=== PATIENT | female | born 2000 | race Caucasian/White ===

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

== ENCOUNTER 2020-02-08 14:08 | Emergency (ER) | payer BC ==
[2020-02-08] MEDS ORDERED: Sodium Chloride 0.9% 10 ML SDV IV PRN (14:17)
[2020-02-08] MEDS ORDERED: Sodium Chloride 0.9% 2.5 ML Syringe FLUSH PRN (14:17)
[2020-02-08] MEDS ORDERED: Sodium Chloride 0.9% 10 ML Syringe FLUSH PRN (14:17)
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
--- NOTE | 2020-02-08 14:45 | CT ---
Head CT Technique: Multiple axial sections through the brain were obtained. Intravenous contrast was not utilized. Comparison: Most previous intracranial imaging is an MRI brain exam of 10/15/19. Findings: Ventricles along with basal cisterns and sulci over the convexities are within normal limits for the patient's age. No abnormal parenchymal densities are seen. No evidence of intracranial hemorrhage. No midline shift or mass-effect is seen. Bone window settings were reviewed which show no acute calvarial finding. Visualized paranasal sinuses and mastoid sinuses show nothing acute. No acute calvarial finding is seen. Impression: 1. Nothing acute is appreciated on noncontrast head CT exam. Diagnostic code #1 This report was dictated in MDT
[2020-02-08] MEDS ORDERED: Iopamidol 755 MG/ML 500 ML Multipack Bottle IVPUSH STA (14:57)
--- NOTE | 2020-02-08 15:00 | CT ---
CT angiogram of brain Technique: Multiple axial sections were obtained through the brain. Intravenous contrast was utilized. Study performed as a CT angiogram protocol. Multiple MIP images were obtained. Comparison: Prior CT angiogram of brain dated 10/14/19. Findings: Dominant right vertebral artery is seen which is a stable finding and normal variant. Basilar artery is patent. Posterior cerebral arteries are patent. Distal internal carotid arteries are patent into the anterior and posterior cerebral arteries. No focal occlusion or stenosis is seen. No discrete aneurysm is appreciated. Impression: 1. No abnormality is identified on CT angiogram of the brain. No change from previous study is seen. Diagnostic code #1 This report was dictated in MDT
[2020-02-08 15:03] LABS: BLOOD UREA NITROGEN,BUN 16 mg/dL (7.0-18.0); CARBON DIOXIDE,CO2 26.7 mmol/L (21.0-32.0); CHLORIDE,CL 103 mmol/L (98-107); GLUCOSE RANDOM 104 mg/dL (74-106); POTASSIUM,K 3.5 mmol/L (3.5-5.1); SODIUM,NA 138 mmol/L (136-145)
--- NOTE | 2020-02-08 15:03 | CT ---
CT angiogram of neck Technique: Multiple axial sections through the neck were obtained. Intravenous contrast was utilized. Study was performed as a CT angiogram protocol. Multiple MIP images were obtained. Comparison: Previous CT neck study of 10/14/19. Findings: Common carotid arteries are widely patent on both sides. Carotid bulb appears unremarkable. Internal carotid artery and external carotid arteries appear within normal limits. Dominant right vertebral artery is seen which is patent. Small left vertebral artery is seen which is patent. 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 No focal stenosis, occlusion or dissection is seen. Impression: 1. No abnormality is seen on CT angiogram of the neck. No change from previous study is seen. Diagnostic code #1 This report was dictated in MDT
[2020-02-08] MEDS ORDERED: Aspirin 325 MG Tab PO ONE (15:35)
[2020-02-08 16:20] VITALS: BP 115/78; PULSE 80
== END 2020-02-08 16:00 | disposition home or self-care (01) ==
LOC: MW.ED 14:08
DX: G45.9 Transient cerebral ischemic attack, unspecified (principal); Z88.2 Allergy status to sulfonamides; Z88.1 Allergy status to other antibiotic agents
CPT/HCPCS: 36415; 70450; 70496; 70498; 80048; 84443; 84484; 84703; 85025; 85610; 85730; 93005; 99284; A9270; Q9967

== ENCOUNTER 2020-09-12 16:13 | Emergency (ER) | payer BC ==
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
[2020-09-12] MEDS ORDERED: Sodium Chloride 0.9% 1,000 ML IV ONE (16:56)
[2020-09-12 17:36] LABS: BLOOD UREA NITROGEN,BUN 12 mg/dL (7.0-18.0); CARBON DIOXIDE,CO2 27.6 mmol/L (21.0-32.0); CHLORIDE,CL 108 mmol/L (98-107); GLUCOSE RANDOM 93 mg/dL (74-106); LIPASE 113 U/L (73-393); POTASSIUM,K 3.6 mmol/L (3.5-5.1); SODIUM,NA 145 mmol/L (136-145)
--- NOTE | 2020-09-12 18:01 | CR ---
INDICATION: Recent pacemaker placement TECHNIQUE: Chest radiograph 1 view COMPARISON: 10/14/2019 FINDINGS: Mediastinum: The mediastinum is normal in appearance. The heart silhouette is normal in size and morphology. There is a left cardiac pacer present with leads in the right atrium and right ventricle. Lung: Small lung volumes are present with discoid atelectasis seen in the right lung base. No sign of pleural effusion seen. No pneumothorax is identified. Bone and Soft tissue: Unremarkable for age. IMPRESSION: 1. Small lung volumes are present with discoid atelectasis seen in the right lung base. Dictated by Jack Jordan MD @ 09/12/2020 6:00:22 PM Dictated by: Jack Jordan MD @ 09/12/2020 18:00:29 (Electronically Signed)
[2020-09-12 18:35] VITALS: BP 113/71; PULSE 91
== END 2020-09-12 18:35 | disposition home or self-care (01) ==
LOC: MW.ED 16:13
DX: R00.2 Palpitations (principal); R00.0 Tachycardia, unspecified; R42 Dizziness and giddiness; R07.9 Chest pain, unspecified; Z88.2 Allergy status to sulfonamides
CPT/HCPCS: 36415; 71045; 80053; 82550; 83690; 83735; 84100; 84484; 85025; 93005; 99285; J7030

== ENCOUNTER 2020-10-06 14:18 | Emergency (ER) | payer BC ==
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
[2020-10-06 15:10] LABS: BLOOD UREA NITROGEN,BUN 14 mg/dL (7.0-18.0); CARBON DIOXIDE,CO2 26.5 mmol/L (21.0-32.0); CHLORIDE,CL 103 mmol/L (98-107); GLUCOSE RANDOM 70 mg/dL (74-106); LIPASE 96 U/L (73-393); POTASSIUM,K 3.8 mmol/L (3.5-5.1); SODIUM,NA 142 mmol/L (136-145)
--- NOTE | 2020-10-06 16:06 | CR ---
INDICATION: Palpitations. TECHNIQUE: Chest 2 views. COMPARISON: Chest radiograph 09/12/2020. FINDINGS: No focal consolidation, pleural effusion, or pneumothorax. Resolution of previously seen right lower lung atelectasis. Normal heart size and pulmonary vascularity. Left chest pacemaker with leads in stable position. The bones are unremarkable. IMPRESSION: No acute cardiopulmonary findings. Dictated by Latosha Cordon MD @ Oct 06 2020 4:01PM Signed by Dr. Latosha Cordon @ Oct 06 2020 4:03PM
[2020-10-06 17:54] VITALS: BP 135/82; PULSE 58
== END 2020-10-06 17:13 | disposition home or self-care (01) ==
LOC: MW.ED 14:18
DX: R00.2 Palpitations (principal); R07.9 Chest pain, unspecified; Z95.0 Presence of cardiac pacemaker; Z88.2 Allergy status to sulfonamides; Z88.1 Allergy status to other antibiotic agents
CPT/HCPCS: 36415; 71046; 71046-26; 80053; 82962; 83690; 83735; 84484; 84703; 85025; 86140; 93005; 93010; 99284; 99285-25

== ENCOUNTER 2020-11-07 13:48 | Emergency (ER) | payer BC ==
--- NOTE | 2020-11-07 14:12 | PCM.EKG ---
#1 Interpretation EKG Date: 11/07/20 Time: 13:55 Rhythm: NSR Rate (Beats/Min): 85 Leopold: Normal P-Wave: Present QRS: Normal ST-T: Normal QT: Normal Comparison: No Change (10/06/20) EKG Interpretation Comments: SInus Rhythm
[2020-11-07 14:52] LABS: BLOOD UREA NITROGEN,BUN 11 mg/dL (7.0-18.0); CARBON DIOXIDE,CO2 26.8 mmol/L (21.0-32.0); CHLORIDE,CL 106 mmol/L (98-107); GLUCOSE RANDOM 99 mg/dL (74-106); POTASSIUM,K 3.7 mmol/L (3.5-5.1); SODIUM,NA 143 mmol/L (136-145)
[2020-11-07] MEDS ORDERED: Magnesium Sulfate (4.06 MEQ/ML) 5 GM/10 ML SDV IV STA (15:04)
[2020-11-07] MEDS ORDERED: Magnesium Sulfate/Water 2 GM/50 ML BAG IV ONE (15:15)
--- NOTE | 2020-11-07 15:27 | CR ---
Indication: Presyncope Technique: Chest 1 view Comparison: October 06, 2020 Findings/Impression: Normal cardiomediastinal silhouette. Electrical device projects over the left cardiac shadow. Interval removal left-sided pacemaker. Clear lungs and pleural spaces. Normal pulmonary vasculature. Osseous structures intact. Dictated by Lupe Contreras MD @ 11/07/2020 3:25:[address] Lupe Contreras @ Nov 07 2020 3:25PM
[2020-11-07] MEDS ORDERED: Lactated Ringers 1,000 ML IV SCH (15:30)
[2020-11-07] MEDS ORDERED: Ketorolac 15 MG/ML SDV IM ONE (15:31)
[2020-11-07] MEDS ORDERED: diphenhydrAMINE 50 MG/ML SDV IVPUSH ONE (15:38)
[2020-11-07] MEDS ORDERED: Prochlorperazine 10 MG/2 ML SDV IVPUSH ONE (15:38)
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
[2020-11-07 17:05] VITALS: BP 118/88; PULSE 96
== END 2020-11-07 17:40 | disposition home or self-care (01) ==
LOC: MW.ED 13:48
DX: G43.909 Migraine, unspecified, not intractable, without status migrainosus (principal); Z88.1 Allergy status to other antibiotic agents; Z20.822 Contact with and (suspected) exposure to COVID-19; Z95.0 Presence of cardiac pacemaker
CPT/HCPCS: 36415; 71045; 80053; 82947; 83735; 84443; 84484; 85025; 87635; 93005; 96365; 96366; 96372; 96375; 99284; J0780; J1200; J1885; J3475; J7120; 99283; U0002

== ENCOUNTER 2021-10-14 19:35 | Emergency (ER) | payer BC ==
[2021-10-14 20:19] VITALS: BP 132/87; PULSE 86
[2021-10-14 20:28] LABS: CORONAVIRUS COVID-19 NAA NEGATIVE (NEGATIVE); INFLUENZA A NAA NEGATIVE (NEGATIVE); INFLUENZA B NAA NEGATIVE (NEGATIVE)
== END 2021-10-14 20:18 | disposition home or self-care (01) ==
LOC: MW.ED 19:35
DX: H66.91 Otitis media, unspecified, right ear (principal); Z88.1 Allergy status to other antibiotic agents; Z95.0 Presence of cardiac pacemaker; Z20.822 Contact with and (suspected) exposure to COVID-19
CPT/HCPCS: 0240U; 99283

== ENCOUNTER 2022-01-21 22:35 | Emergency (ER) | payer BC | END 2022-01-22 00:43 | disposition left against medical advice (07) | LOC: MW.ED 22:35 | DX: Z53.21 Procedure and treatment not carried out due to patient leaving prior to being seen by health care provider (principal) ==

== ENCOUNTER 2022-02-06 00:21 | Emergency (ER) | payer BC ==
[2022-02-06] MEDS ORDERED: Ketorolac 30 MG/ML SDV IM STA (03:44)
[2022-02-06 03:57] VITALS: BP 110/78; PULSE 72
[2022-02-06 05:14] LABS: C. TRACHOMATIS BY PCR NOT DETECTED; N. GONORRHOEAE BY PCR NOT DETECTED
== END 2022-02-06 03:50 | disposition home or self-care (01) ==
LOC: MW.ED 00:21
DX: R10.2 Pelvic and perineal pain (principal); Z88.1 Allergy status to other antibiotic agents
CPT/HCPCS: 81001; 81025; 87491; 87591; 99283; 99284

== ENCOUNTER 2022-02-15 12:52 | Emergency (ER) | payer BC ==
[2022-02-15] MEDS ORDERED: Sodium Chloride 0.9% 2.5 ML Syringe FLUSH PRN (12:58)
[2022-02-15] MEDS ORDERED: Sodium Chloride 0.9% 10 ML Syringe FLUSH PRN (12:58)
[2022-02-15 13:29] LABS: BLOOD UREA NITROGEN,BUN 6 mg/dL (7.0-18.0); CARBON DIOXIDE,CO2 22.8 mmol/L (21.0-32.0); CHLORIDE,CL 105 mmol/L (98-107); GLUCOSE RANDOM 120 mg/dL (74-106); POTASSIUM,K 3.7 mmol/L (3.5-5.1); SODIUM,NA 139 mmol/L (136-145)
[2022-02-15 13:38] LABS: ESTIMATED GFR 107 mL/min (>60)
[2022-02-15] MEDS ORDERED: Magnesium Sulfate/Water 2 GM in Premix Bag 1 BAG IV ONE (14:05)
[2022-02-15 19:01] VITALS: BP 113/76; PULSE 95
== END 2022-02-15 17:02 | disposition home or self-care (01) ==
LOC: MW.ED 12:52
DX: R20.2 Paresthesia of skin (principal); Z88.1 Allergy status to other antibiotic agents; Z95.0 Presence of cardiac pacemaker
CPT/HCPCS: 36415; 70450; 71045; 80053; 81003; 82947; 83735; 84484; 85025; 93005; 96365; 99284; J3475; J3490; 93010

== ENCOUNTER 2022-04-17 20:26 | Emergency (ER) | payer BC ==
[2022-04-17] MEDS ORDERED: Azithromycin 250 MG Tab PO ONE (22:01)
[2022-04-17 22:14] VITALS: BP 133/96; PULSE 86
== END 2022-04-17 22:20 | disposition home or self-care (01) ==
LOC: MW.ED 20:26
DX: H92.01 Otalgia, right ear (principal); Z88.1 Allergy status to other antibiotic agents; Z95.0 Presence of cardiac pacemaker
CPT/HCPCS: 99283; A9270

== ENCOUNTER 2022-06-12 23:30 | Emergency (ER) | payer BC ==
[2022-06-13] MEDS ORDERED: Lidocaine 1% 5 ML VIAL INJECT ONE ×2 (01:58→01:59)
[2022-06-13 04:20] VITALS: BP 119/69; PULSE 71
== END 2022-06-13 04:20 | disposition home or self-care (01) ==
LOC: MW.ED 23:30
DX: L60.0 Ingrowing nail (principal); Z88.2 Allergy status to sulfonamides
CPT/HCPCS: 11750; 99283

== ENCOUNTER 2022-06-14 23:00 | Emergency (ER) | payer BC ==
[2022-06-15 00:20] VITALS: BP 119/76; PULSE 77
== END 2022-06-15 01:46 | disposition left against medical advice (07) ==
LOC: MW.ED 23:00
DX: Z53.21 Procedure and treatment not carried out due to patient leaving prior to being seen by health care provider (principal)
CPT/HCPCS: 81003

== ENCOUNTER 2022-07-09 09:42 | Emergency (ER) | payer BC ==
[2022-07-09] MEDS ORDERED: Sodium Chloride 0.9% 1,000 ML IV STA (10:25)
[2022-07-09 11:12] LABS: CARBON DIOXIDE,CO2 26.2 mmol/L (21.0-32.0); POTASSIUM,K 4.3 mmol/L (3.5-5.1)
[2022-07-09 12:51] VITALS: BP 117/89; PULSE 89
== END 2022-07-09 12:17 | disposition home or self-care (01) ==
LOC: MW.ED 09:42
DX: K64.4 Residual hemorrhoidal skin tags (principal); K59.00 Constipation, unspecified; K62.5 Hemorrhage of anus and rectum; Z88.2 Allergy status to sulfonamides
CPT/HCPCS: 36415; 74018; 80053; 81001; 81025; 85025; 87086; 96360; 99283; J7030

== ENCOUNTER 2022-09-24 06:30 | Emergency (ER) | payer BC ==
[2022-09-24] MEDS ORDERED: Azithromycin 250 MG Tab PO ONE (06:48)
[2022-09-24 06:49] VITALS: BP 121/73; PULSE 94
== END 2022-09-24 06:53 | disposition home or self-care (01) ==
LOC: MW.ED 06:30
DX: J32.9 Chronic sinusitis, unspecified (principal); Z88.1 Allergy status to other antibiotic agents; Z95.0 Presence of cardiac pacemaker
CPT/HCPCS: 99283; A9270

== ENCOUNTER 2022-09-30 20:26 | Emergency (ER) | payer BC ==
[2022-09-30] MEDS ORDERED: Acetaminophen 325 MG Tab PO ONE (21:20)
[2022-09-30] MEDS ORDERED: Ibuprofen 400 MG Tab PO ONE (21:20)
[2022-09-30 22:36] LABS: CARBON DIOXIDE,CO2 26.5 mmol/L (21.0-32.0); POTASSIUM,K 4.2 mmol/L (3.5-5.1)
[2022-09-30] MEDS ORDERED: Iopamidol 755 MG/ML 500 ML Multipack Bottle IVPUSH STA (23:13)
[2022-10-01 00:03] VITALS: BP 115/65; PULSE 76
== END 2022-10-01 | disposition home or self-care (01) ==
LOC: MW.ED 20:26
DX: K13.79 Other lesions of oral mucosa (principal); Z88.1 Allergy status to other antibiotic agents; Z95.0 Presence of cardiac pacemaker
CPT/HCPCS: 36415; 70491; 80053; 85025; 99283; A9270; Q9967

== ENCOUNTER 2023-02-07 10:15 | Emergency (ER) | payer SELFPAY ==
[2023-02-07 12:01] VITALS: BP 125/85; PULSE 80
== END 2023-02-07 12:01 | disposition home or self-care (01) ==
LOC: MW.ED 10:15
DX: S49.92XA Unspecified injury of left shoulder and upper arm, initial encounter (principal); Z88.1 Allergy status to other antibiotic agents; Z95.0 Presence of cardiac pacemaker; X50.1XXA Overexertion from prolonged static or awkward postures, initial encounter
CPT/HCPCS: 73030-26-LT; 73030-LT; 99283

== ENCOUNTER 2023-04-05 11:20 | Emergency (ER) | payer BC ==
[2023-04-05] MEDS ORDERED: Sodium Chloride 0.9% 1,000 ML IV STA (12:21)
[2023-04-05] MEDS ORDERED: Ketorolac 30 MG/ML SDV IVPUSH STA (12:21)
[2023-04-05] MEDS ORDERED: Sodium Chloride 0.9% 2.5 ML Syringe FLUSH PRN (12:21)
[2023-04-05] MEDS ORDERED: Magnesium Sulfate/Water 2 GM in Premix Bag 1 BAG IV STA (12:21)
[2023-04-05] MEDS ORDERED: Sodium Chloride 0.9% 10 ML Syringe FLUSH PRN (12:21)
[2023-04-05] MEDS ORDERED: diphenhydrAMINE 50 MG/ML SDV IVPUSH STA (12:22)
[2023-04-05] MEDS ORDERED: Prochlorperazine 10 MG/2 ML SDV IVPUSH STA (12:22)
[2023-04-05 12:44] LABS: BASOPHILS ABSOLUTE AUTO 0.02 K/uL (0.00-0.20); BASOPHILS PERCENT AUTO 0.2 % (0.0-1.0); EOSINOPHILS ABSOLUTE AUTO 0.48 K/uL (0.00-0.45); EOSINOPHILS PERCENT AUTO 5.8 % (0.0-6.0); HEMATOCRIT 40.9 % (37.0-47.0); HEMOGLOBIN 14.1 g/dL (12.0-16.0); IMMATURE GRAN ABSOLUTE AUTO 0.03 K/uL (0.00-0.05); IMMATURE GRAN PERCENT AUTO 0.4 % (0.0-0.4); LYMPHOCYTES ABSOLUTE AUTO 2.52 K/uL (1.00-4.80); LYMPHOCYTES PERCENT AUTO 30.6 % (24.0-44.0); MEAN CORPUSCULAR HEMOGLOBIN 30.1 pg (28.0-32.0); MEAN CORPUSCULAR HGB CONC 34.5 g/dL (32.0-36.0); MEAN CORPUSCULAR VOLUME 87.4 fL (83.0-99.0); MEAN PLATELET VOLUME 10.1 fL (9.4-12.3); MONOCYTES ABSOLUTE AUTO 0.53 K/uL (0.00-0.80); MONOCYTES PERCENT AUTO 6.4 % (0.0-8.0); NEUTROPHILS ABSOLUTE AUTO 4.7 K/uL (1.8-7.7); NEUTROPHILS PERCENT AUTO 56.6 % (41.0-71.0); PLATELET COUNT,PLT 322 K/uL (150-400); RED BLOOD CELL COUNT 4.68 M/uL (4.10-5.30); WHITE BLOOD CELL COUNT,WBC 8.23 K/uL (3.9-11.3)
[2023-04-05 15:22] LABS: A/G RATIO 1.2 (0.9-1.6); ALBUMIN 4.2 g/dL (3.4-5.0); BILIRUBIN TOTAL 0.4 mg/dL (0.2-1.0); CALCIUM 9.4 mg/dL (8.5-10.1); CREATININE 0.8 mg/dL (0.6-1.0); EST CRCL DRUG DOSING (CG) 83.23 mL/min; POTASSIUM,K 4.1 mmol/L (3.5-5.1); PROTEIN TOTAL,TP 7.7 g/dL (6.4-8.2)
[2023-04-05 20:02] VITALS: BP 136/88; PULSE 105
== END 2023-04-05 13:20 | disposition left against medical advice (07) ==
LOC: MW.ED 11:20
DX: G43.909 Migraine, unspecified, not intractable, without status migrainosus (principal); Z88.2 Allergy status to sulfonamides; Z88.1 Allergy status to other antibiotic agents
CPT/HCPCS: 36415; 80053; 84703; 85025; 96365; 96375; 99283; J0780; J1200; J3475; J3490; J7030; 99284

== ENCOUNTER 2023-06-09 16:32 | Emergency (ER) | payer BC ==
[2023-06-09 17:09] VITALS: BP 136/90; PULSE 78
[2023-06-09] MEDS ORDERED: predniSONE 20 MG Tab PO STA (17:21)
[2023-06-09] MEDS ORDERED: diphenhydrAMINE 50 MG Cap PO ONE (17:21)
== END 2023-06-09 18:15 | disposition home or self-care (01) ==
LOC: MW.ED 16:32
DX: R21 Rash and other nonspecific skin eruption (principal); Z95.0 Presence of cardiac pacemaker; Z79.899 Other long term (current) drug therapy; Z88.8 Allergy status to other drugs, medicaments and biological substances; Z88.2 Allergy status to sulfonamides
CPT/HCPCS: 99283; A9270

== ENCOUNTER 2024-02-12 04:44 | Observation (INO) | payer SELFPAY ==
[2024-02-12 04:56] LABS: BASOPHILS ABSOLUTE AUTO 0.03 K/uL (0.00-0.20); BASOPHILS PERCENT AUTO 0.2 % (0.0-1.0); EOSINOPHILS ABSOLUTE AUTO 0.22 K/uL (0.00-0.45); EOSINOPHILS PERCENT AUTO 1.5 % (0.0-6.0); HEMATOCRIT 41.8 % (37.0-47.0); HEMOGLOBIN 14.3 g/dL (12.0-16.0); IMMATURE GRAN ABSOLUTE AUTO 0.06 K/uL (0.00-0.05); IMMATURE GRAN PERCENT AUTO 0.4 % (0.0-0.4); LYMPHOCYTES ABSOLUTE AUTO 3.79 K/uL (1.00-4.80); LYMPHOCYTES PERCENT AUTO 26.7 % (24.0-44.0); MEAN CORPUSCULAR HEMOGLOBIN 30.2 pg (28.0-32.0); MEAN CORPUSCULAR HGB CONC 34.2 g/dL (32.0-36.0); MEAN CORPUSCULAR VOLUME 88.2 fL (83.0-99.0); MEAN PLATELET VOLUME 10.2 fL (9.4-12.3); MONOCYTES ABSOLUTE AUTO 1.23 K/uL (0.00-0.80); MONOCYTES PERCENT AUTO 8.7 % (0.0-8.0); NEUTROPHILS ABSOLUTE AUTO 8.87 K/uL (1.80-7.70); NEUTROPHILS PERCENT AUTO 62.5 % (41.0-71.0); PLATELET COUNT,PLT 309 K/uL (150-400); RED BLOOD CELL COUNT 4.74 M/uL (4.10-5.30)
[2024-02-12 05:03] LABS: APPEARANCE,URINE CLEAR; BILIRUBIN,URINE NEGATIVE (NEGATIVE); COLOR,URINE YELLOW; GLUCOSE,URINE NEGATIVE (NEGATIVE); KETONES,URINE NEGATIVE (NEGATIVE); LEUKOCYTE ESTERASE,URINE NEGATIVE (NEGATIVE); NITRITE,URINE NEGATIVE (NEGATIVE); OCCULT BLOOD,URINE TRACE-INTACT (NEGATIVE); PROTEIN,URINE NEGATIVE (NEGATIVE); UROBILINOGEN,URINE 0.2 EU/dL (<2.0)
[2024-02-12] MEDS: Morphine 4 MG/ML Syringe IVPUSH ONE ×2 (05:05→06:17)
[2024-02-12] MEDS: Sodium Chloride 0.9% 10 ML Syringe FLUSH PRN (05:05)
[2024-02-12] MEDS: Sodium Chloride 0.9% 1,000 ML IV STA (05:05)
[2024-02-12] MEDS: Sodium Chloride 0.9% 2.5 ML Syringe FLUSH PRN (05:06)
[2024-02-12 05:11] LABS: BACTERIA,URINE FEW (NEGATIVE); EPITHELIAL CELLS,URINE FEW (NONE-FEW); RBC,URINE 0-2 (0-2/HPF)
[2024-02-12 05:18] LABS: A/G RATIO 1.1 (0.9-1.6); ALBUMIN 3.9 g/dL (3.4-5.0); BILIRUBIN TOTAL 0.5 mg/dL (0.2-1.0); CARBON DIOXIDE,CO2 24.8 mmol/L (21.0-32.0); CREATININE 0.8 mg/dL (0.6-1.0); EST CRCL DRUG DOSING (CG) 82.53 mL/min; POTASSIUM,K 3.5 mmol/L (3.5-5.1); PROTEIN TOTAL,TP 7.4 g/dL (6.4-8.2)
[2024-02-12] MEDS: Iopamidol 755 MG/ML 500 ML Multipack Bottle IVPUSH ONE (05:49)
[2024-02-12] MEDS: Piperacillin/Tazobactam 3.375 GM in Sodium Chloride 0.9% 100 ML IV ONE (09:27)
[2024-02-12] MEDS: HYDROmorphone 0.5 MG/0.5 ML Syringe IVPUSH ONE (09:38)
[2024-02-12] MEDS: Sodium Chloride 0.9% 1,000 ML IV SCH ×2 (09:38→19:33)
[2024-02-12] MEDS ORDERED: Acetaminophen 325 MG Tab PO PRN (10:38)
[2024-02-12] MEDS ORDERED: Naloxone 0.4 MG/ML SDV IVPUSH PRN (10:38)
[2024-02-12] MEDS ORDERED: Piperacillin/Tazobactam 4.5 GM in Sodium Chloride 0.9% 100 ML IV SCH (10:45)
[2024-02-12] MEDS: Ondansetron 4 MG/2 ML SDV IVPUSH PRN (13:17)
[2024-02-12] MEDS: Morphine 2 MG/ML SYRINGE IVPUSH PRN (14:13)
[2024-02-12] MEDS: Acetaminophen/HYDROcodone 325-5 MG Tab PO PRN (16:38)
[2024-02-12] MEDS: Piperacillin/Tazobactam 4.5 GM in Sodium Chloride 0.9% 100 ML IV SCH (18:27)
[2024-02-12] MEDS: Fluticasone NASAL Spray 16 GM Bottle NASBOTH PRN (19:29)
[2024-02-12] MEDS: diphenhydrAMINE 25 MG Cap PO ONE (20:41)
[2024-02-12] MEDS: Ertapenem 1 GM in Sodium Chloride 0.9% 50 ML IV SCH (20:43)
[2024-02-13 06:08] LABS: BASOPHILS ABSOLUTE AUTO 0.01 K/uL (0.00-0.20); BASOPHILS PERCENT AUTO 0.1 % (0.0-1.0); EOSINOPHILS ABSOLUTE AUTO 0.17 K/uL (0.00-0.45); EOSINOPHILS PERCENT AUTO 1.8 % (0.0-6.0); HEMATOCRIT 35.8 % (37.0-47.0); IMMATURE GRAN ABSOLUTE AUTO 0.02 K/uL (0.00-0.05); IMMATURE GRAN PERCENT AUTO 0.2 % (0.0-0.4); LYMPHOCYTES ABSOLUTE AUTO 2.41 K/uL (1.00-4.80); LYMPHOCYTES PERCENT AUTO 25.8 % (24.0-44.0); MEAN CORPUSCULAR HEMOGLOBIN 30.4 pg (28.0-32.0); MEAN CORPUSCULAR HGB CONC 33.5 g/dL (32.0-36.0); MEAN CORPUSCULAR VOLUME 90.6 fL (83.0-99.0); MEAN PLATELET VOLUME 10.4 fL (9.4-12.3); MONOCYTES ABSOLUTE AUTO 0.67 K/uL (0.00-0.80); MONOCYTES PERCENT AUTO 7.2 % (0.0-8.0); NEUTROPHILS ABSOLUTE AUTO 6.07 K/uL (1.80-7.70); NEUTROPHILS PERCENT AUTO 64.9 % (41.0-71.0); PLATELET COUNT,PLT 256 K/uL (150-400); RED BLOOD CELL COUNT 3.95 M/uL (4.10-5.30); WHITE BLOOD CELL COUNT,WBC 9.35 K/uL (3.9-11.3)
[2024-02-13 06:47] LABS: BILIRUBIN TOTAL 0.5 mg/dL (0.2-1.0); CALCIUM 8.4 mg/dL (8.5-10.1); CARBON DIOXIDE,CO2 28.3 mmol/L (21.0-32.0); CREATININE 0.8 mg/dL (0.6-1.0); EST CRCL DRUG DOSING (CG) 82.53 mL/min; PROTEIN TOTAL,TP 5.9 g/dL (6.4-8.2)
[2024-02-13] MEDS ORDERED: Morphine 2 MG/ML SYRINGE IVPUSH PRN (08:19)
[2024-02-13] MEDS ORDERED: Metoclopramide 10 MG/2 ML SDV IVPUSH PRN (08:19)
[2024-02-13] MEDS ORDERED: Ondansetron 4 MG/2 ML SDV IVPUSH PRN (08:19)
[2024-02-13] MEDS ORDERED: Naloxone 0.4 MG/ML SDV IVPUSH PRN (08:19)
[2024-02-13] MEDS ORDERED: Albuterol 0.083% 2.5 MG/3 ML Neb Soln NEB PRN (08:19)
[2024-02-13] MEDS ORDERED: droPERidol 5 MG/2 ML SDV IVPUSH PRN (08:19)
[2024-02-13] MEDS: Scopalamine 1mg/3day Transdermal Patch TOP ONE (09:47)
[2024-02-13] MEDS ORDERED: Bupivacaine 0.5%/EPINEPHrine 1:200,000 30 ML SDV ONE (10:54)
[2024-02-13] MEDS ORDERED: Bupivacaine 0.25% 30 ML SDV ONE ×2 (10:54→11:22)
[2024-02-13] MEDS ORDERED: Rocuronium Bromide 50 MG/5 ML Syringe ONE (11:22)
[2024-02-13] MEDS ORDERED: Ondansetron 4 MG/2 ML SDV ONE (11:22)
[2024-02-13] MEDS ORDERED: Ketorolac 30 MG/ML SDV ONE (11:22)
[2024-02-13] MEDS ORDERED: Propofol 200 MG/20 ML SDV ONE (11:22)
[2024-02-13] MEDS ORDERED: Dexamethasone 4 MG/ML 5 ML MDV ONE (11:22)
[2024-02-13] MEDS ORDERED: Sugammadex Sodium 200 MG/2 ML VIAL IV ONE (11:22)
[2024-02-13] MEDS ORDERED: Ropivacaine 0.5% 5 MG/ML 30 ML SDV ONE (11:22)
[2024-02-13] MEDS ORDERED: Lidocaine 2% 5 ML SDV ONE (11:22)
[2024-02-13] MEDS ORDERED: fentaNYL 100 MCG/2 ML SDV ONE (11:23)
[2024-02-13] MEDS ORDERED: Indocyanine Green 25 MG SDV ONE (12:07)
[2024-02-13] MEDS ORDERED: Water For Injection, Sterile 20 ML ONE (12:07)
[2024-02-13] MEDS: fentaNYL 50 MCG/ML SDV IVPUSH PRN (13:57)
[2024-02-13] MEDS: HYDROmorphone 1 MG/ML Syringe IVPUSH PRN (13:57)
[2024-02-13 17:50] VITALS: BP 129/89; PULSE 88
== END 2024-02-13 17:00 | disposition home or self-care (01) ==
LOC: MW.ED 04:44 → MW.MS 10:18
PROVIDERS: ADMIT Surgery; ATTEND Surgery
DX: K80.12 Calculus of gallbladder with acute and chronic cholecystitis without obstruction (principal); K66.0 Peritoneal adhesions (postprocedural) (postinfection); Z88.8 Allergy status to other drugs, medicaments and biological substances; Z88.2 Allergy status to sulfonamides; Z79.2 Long term (current) use of antibiotics
CPT/HCPCS: 36415; 47562; 64488; 74177; 76705; 80053; 81001; 81025; 85025; 93005; 96361; 96365; 96366; 96367; 96375; 96376; 99285; A9270; G0378; J0131; J0665; J1100; J1170; J1335; J1885; J2270; J2405; J2543; J2704; J2795; J3010; J3490; J7030; Q9967; 00790; 99284

== ENCOUNTER 2024-02-19 16:11 | Emergency (ER) | payer SELFPAY ==
[2024-02-19 16:52] LABS: APPEARANCE,URINE SLT CLOUDY; BILIRUBIN,URINE NEGATIVE (NEGATIVE); COLOR,URINE YELLOW; GLUCOSE,URINE NEGATIVE (NEGATIVE); KETONES,URINE 15 mg/dL (NEGATIVE); LEUKOCYTE ESTERASE,URINE TRACE (NEGATIVE); NITRITE,URINE NEGATIVE (NEGATIVE); OCCULT BLOOD,URINE LARGE (NEGATIVE); PROTEIN,URINE TRACE mg/dL (NEGATIVE); UROBILINOGEN,URINE 0.2 EU/dL (<2.0)
[2024-02-19 16:59] LABS: BASOPHILS ABSOLUTE AUTO 0.01 K/uL (0.00-0.20); BASOPHILS PERCENT AUTO 0.1 % (0.0-1.0); EOSINOPHILS ABSOLUTE AUTO 0.17 K/uL (0.00-0.45); EOSINOPHILS PERCENT AUTO 1.5 % (0.0-6.0); HEMATOCRIT 43.3 % (37.0-47.0); HEMOGLOBIN 14.7 g/dL (12.0-16.0); IMMATURE GRAN ABSOLUTE AUTO 0.04 K/uL (0.00-0.05); IMMATURE GRAN PERCENT AUTO 0.4 % (0.0-0.4); LYMPHOCYTES ABSOLUTE AUTO 2.79 K/uL (1.00-4.80); LYMPHOCYTES PERCENT AUTO 25.1 % (24.0-44.0); MEAN CORPUSCULAR HEMOGLOBIN 29.6 pg (28.0-32.0); MEAN CORPUSCULAR HGB CONC 33.9 g/dL (32.0-36.0); MEAN CORPUSCULAR VOLUME 87.3 fL (83.0-99.0); MEAN PLATELET VOLUME 10.3 fL (9.4-12.3); MONOCYTES ABSOLUTE AUTO 0.74 K/uL (0.00-0.80); MONOCYTES PERCENT AUTO 6.7 % (0.0-8.0); NEUTROPHILS ABSOLUTE AUTO 7.37 K/uL (1.80-7.70); NEUTROPHILS PERCENT AUTO 66.2 % (41.0-71.0); PLATELET COUNT,PLT 369 K/uL (150-400); RED BLOOD CELL COUNT 4.96 M/uL (4.10-5.30); WHITE BLOOD CELL COUNT,WBC 11.12 K/uL (3.9-11.3)
[2024-02-19 17:00] LABS: BACTERIA,URINE FEW (NEGATIVE); EPITHELIAL CELLS,URINE MODERATE (NONE-FEW); RBC,URINE TOO NUMEROUS TO CT (0-2/HPF)
[2024-02-19] MEDS: Ketorolac 30 MG/ML SDV IM STA (17:13)
[2024-02-19] MEDS: Ondansetron 4 MG Tab.DIS PO ONE (17:13)
[2024-02-19 17:15] LABS: A/G RATIO 1.1 (0.9-1.6); BILIRUBIN TOTAL 0.6 mg/dL (0.2-1.0); CALCIUM 9.4 mg/dL (8.5-10.1); CARBON DIOXIDE,CO2 26.5 mmol/L (21.0-32.0); CREATININE 0.8 mg/dL (0.6-1.0); EST CRCL DRUG DOSING (CG) 92.54 mL/min; POTASSIUM,K 4.1 mmol/L (3.5-5.1); PROTEIN TOTAL,TP 7.6 g/dL (6.4-8.2)
[2024-02-19 17:38] VITALS: BP 113/77; PULSE 81
== END 2024-02-19 17:39 | disposition home or self-care (01) ==
LOC: MW.ED 16:11
DX: N93.8 Other specified abnormal uterine and vaginal bleeding (principal); Z79.899 Other long term (current) drug therapy; Z95.0 Presence of cardiac pacemaker; Z88.2 Allergy status to sulfonamides; Z75.8 Other problems related to medical facilities and other health care
CPT/HCPCS: 36415; 80053; 81001; 84703; 85025; 87086; 96372; 99284; A9270; J1885

== ENCOUNTER 2024-11-05 16:09 | Emergency (ER) | payer BC ==
[2024-11-05 17:11] LABS: BASOPHILS ABSOLUTE AUTO 0.02 K/uL (0.00-0.20); BASOPHILS PERCENT AUTO 0.2 % (0.0-1.0); EOSINOPHILS ABSOLUTE AUTO 0.61 K/uL (0.00-0.45); EOSINOPHILS PERCENT AUTO 5.2 % (0.0-6.0); HEMATOCRIT 40.9 % (37.0-47.0); HEMOGLOBIN 13.5 g/dL (12.0-16.0); IMMATURE GRAN ABSOLUTE AUTO 0.03 K/uL (0.00-0.05); IMMATURE GRAN PERCENT AUTO 0.3 % (0.0-0.4); LYMPHOCYTES ABSOLUTE AUTO 3.09 K/uL (1.00-4.80); LYMPHOCYTES PERCENT AUTO 26.5 % (24.0-44.0); MEAN CORPUSCULAR HEMOGLOBIN 29.5 pg (28.0-32.0); MEAN CORPUSCULAR VOLUME 89.3 fL (83.0-99.0); MEAN PLATELET VOLUME 10.4 fL (9.4-12.3); MONOCYTES ABSOLUTE AUTO 0.57 K/uL (0.00-0.80); MONOCYTES PERCENT AUTO 4.9 % (0.0-8.0); NEUTROPHILS ABSOLUTE AUTO 7.35 K/uL (1.80-7.70); NEUTROPHILS PERCENT AUTO 62.9 % (41.0-71.0); PLATELET COUNT,PLT 312 K/uL (150-400); RED BLOOD CELL COUNT 4.58 M/uL (4.10-5.30); WHITE BLOOD CELL COUNT,WBC 11.67 K/uL (3.9-11.3)
[2024-11-05 17:39] LABS: A/G RATIO 1.4 (0.9-1.6); BILIRUBIN TOTAL 0.4 mg/dL (0.2-1.0); CARBON DIOXIDE,CO2 26.3 mmol/L (21.0-32.0); CREATININE 0.8 mg/dL (0.6-1.0); EST CRCL DRUG DOSING (CG) 85.76 mL/min; POTASSIUM,K 3.6 mmol/L (3.5-5.1); PROTEIN TOTAL,TP 6.9 g/dL (6.4-8.2)
[2024-11-05] MEDS: LORazepam 0.5 MG Tab PO ONE (18:53)
[2024-11-05 21:20] VITALS: BP 130/90; PULSE 102
== END 2024-11-05 21:19 | disposition home or self-care (01) ==
LOC: MW.ED 16:09
DX: R03.0 Elevated blood-pressure reading, without diagnosis of hypertension (principal); Z75.3 Unavailability and inaccessibility of health-care facilities; Z88.2 Allergy status to sulfonamides
CPT/HCPCS: 36415; 71045; 80053; 84703; 85025; 99284; A9270; 99283

== ENCOUNTER 2025-01-16 16:47 | Emergency (ER) | payer BC ==
[2025-01-16 18:37] VITALS: BP 117/72; PULSE 86
== END 2025-01-16 18:37 | disposition home or self-care (01) ==
LOC: MW.ED 16:47
DX: M79.671 Pain in right foot (principal); Z88.2 Allergy status to sulfonamides; Z79.899 Other long term (current) drug therapy; Z75.3 Unavailability and inaccessibility of health-care facilities
CPT/HCPCS: 73610-26-RT; 73610-RT; 73630-26-RT; 73630-RT; 99283